=== PATIENT | female | born 1970 | race Caucasian/White ===

== ENCOUNTER → 2016-04-19 | Outpatient (CLI) | payer BC ==
--- NOTE | 2016-04-19 09:48 | DI ---
PA /LATERAL CHEST X-RAY, 04/19/2016 9:09 AM : Clinical History: Chest pain with respiration. Previous Exam: 12/08/2014. There is no acute soft tissue or bony abnormality. Heart size is normal. Lungs are clear. Mediastinal structures are normal. There are no pulmonary nodules. Reading: Normal chest x-ray.
== END ==
LOC: MOB RAD 09:10
DX: R07.1 Chest pain on breathing (principal); J40 Bronchitis, not specified as acute or chronic
CPT/HCPCS: 71020

== ENCOUNTER → 2016-07-11 | Outpatient (CLI) | payer SELFPAY ==
[2016-07-11 17:23] LABS: BASOPHILS # (AUTO) 0.04 10*3/UL; BASOPHILS % (AUTO) 0.8 % (0-1); EOSINOPHILS # (AUTO) 0.18 10*3/UL; EOSINOPHILS % (AUTO) 3.8 % (0-8); HEMATOCRIT 44.9 % (37.0-47.0); HEMOGLOBIN 14.7 g/dL (12.0-16.0); LYMPHOCYTES # (AUTO) 1.78 10*3/uL; MEAN CORPUSCULAR HEMOGLOBIN 32.5 PG (27-31); MEAN CORPUSCULAR HGB CONC 32.7 g/dL (33-37); MEAN CORPUSCULAR VOLUME 99.3 FL (81-99); MEAN PLATELET VOLUME 11.3 FL (7.4-12.2); MONOCYTES # (AUTO) 0.29 10*3/UL (0.3-0.8); NEUTROPHILS # (AUTO) 2.51 10*3/UL; NEUTROPHILS % (AUTO) 52.3 % (50-80); RED BLOOD COUNT 4.52 10^6/uL (4.20-5.40)
[2016-07-11 17:27] LABS: BLOOD UREA NITROGEN 14 mg/dL (7-22); CALCIUM 9.7 mg/dL (8.7-10.7); EST GLOMERULAR FILTRATION > 60 (>60 ml/min/1.73m(2)); SERUM ALBUMIN 4.5 g/dL (3.5-4.8)
[2016-07-11 17:32] LABS: PLATELET MORPHOLOGY COMMENT NORMAL MORPHOLOGY (NORM); RBC MORPHOLOGY COMMENT NORMAL MORPHOLOGY (NORM); WBC MORPHOLOGY COMMENT NORMAL MORPHOLOGY (NORM)
== END ==
LOC: MOB LAB 15:58
PROVIDERS: ATTEND Family Medicine
DX: K21.9 Gastro-esophageal reflux disease without esophagitis (principal); R10.84 Generalized abdominal pain; K62.5 Hemorrhage of anus and rectum; R53.83 Other fatigue
CPT/HCPCS: 36415; 80053; 84443; 85025

== ENCOUNTER → 2016-07-27 | Outpatient (CLI) | payer OTHER ==
--- NOTE | 2016-07-29 21:58 | DI ---
XR CXR 2VW PA/LAT,07/27/2016 2:54 PM: Clinical History: Cough Previous Exam: September 17, 2016 Findings: PA and lateral views of the chest are obtained, and demonstrate clear lungs. The cardiomediastinum an d bony thorax are unremarkable. Impression: Normal chest.
== END ==
LOC: MOB RAD 14:56
PROVIDERS: ATTEND Family Medicine
DX: R05 Cough (principal)
CPT/HCPCS: 71020

== ENCOUNTER 2016-10-15 19:04 | Emergency (ER) | payer OTHER ==
[2016-10-15] MEDS ORDERED: ONDANSETRON 4 MG/2 ML VIAL IVP ONE (19:15)
[2016-10-15] MEDS ORDERED: Sodium Chloride 0.9% 1,000 ML PRIMARY IV ONE (19:15)
[2016-10-15] MEDS ORDERED: ALBUTEROL SULFATE 2.5 MG/3 ML NEB ONE (19:25)
[2016-10-15] MEDS ORDERED: ALBUTEROL SULFATE 2.5 MG/3 ML NEB SCH (19:30)
--- NOTE | 2016-10-15 19:33 | PDOC ---
Gen Adult / Medical Screen HPI - General Chief Complaint: General Medical Stated Complaint: AMMONIA EXPOSURE, CHEST TIGHTNESS Date Seen by Provider: 10/15/16 Time Seen by Provider: 19:30 Source: POSITIVE: Patient Exam Limitations: POSITIVE: No limitations Nurse's Notes Reviewed & Considered: Yes - Indicators Temperature Between 95 and 101 Degrees: Yes Respirations Between 12 and 20: Yes Blood Pressure Between 100-165 (sys) and 60-100 (snyder): Yes Pulse Range Between 60-105 (100 for age > 60 years): Yes Severe Pain (Greater than 5/10 Reported): No Chest or Abdominal Pain: Yes (chest tightness and shortness of breath) Inability to Walk: No Pt Reports Active High Risk Cond. (TB/Hepatitis/HIV/Chemo): No Abnormal Mental Status: No - History of Present Illness Initial Comments: This is a very pleasant 46-year-old female who comes in today with a chief complaint of ammonia exposure. 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 She was in the house approximately an hour after which she developed chest tightness and shortness of breath and a sore throat. This occurred at approximately 1300 hrs. today. She comes in now seeking further evaluation because she has persistence of symptoms. She also complains of cough. Body Location Affected: REPORTS: Chest Timing: REPORTS: Abrupt Duration: 4-6 hours Similar Symptoms Previously: No Recent Care Received: REPORTS: Denies Any Prior Injuries Related to Current Complaint?: No - Patient Home Medications Home Medications: Home Medications Calcium Carbonate/Vitamin D3 [Calcium 600-Vit D3 200 Tablet] 1 each PO DAILY 08/02 Cholecalciferol [Vitamin D] 1 cap PO DAILY 07/27/10 Vit B12/Intrins Fact/FA Cmb #2 1 tab SL DAILY 07/27/[address] [PriLOSEC] 1 cap PO DAILY 10/05/10 Multivitamin [Daily Vitamin] 1 tab PO DAILY tab 04/21/13 Topiramate [Topamax Tab] 3 tab PO tab 12/08/13 Prochlorperazine Maleate 0.5 tab PO DAILY PRN 02/03/14 Tramadol HCl 1 tab PO BID 02/03/14 Valacyclovir HCl [Valtrex] 1 tab PO TID tab 04/15/14 Budesonide/Formoterol Fumarate [Symbicort] 2 puff INH BID inh 04/16/16 Albuterol Sulfate [Proair Hfa] 1 - 2 puff INH Q4-6H #1 puff 04/19/16 Budesonide/Formoterol Fumarate [Symbicort] 2 puff INH BID #1 inh 07/24/16 Methylprednisolone [Medrol] 4 mg PO 3-4XD #1 packet 07/27/16 Promethazine HCl/Codeine [Promethazine-Codeine Syrup] 5 ml PO Q4H #240 ml Estradiol [Estrace] 1 tab PO DAILY #30 tab 08/07/16 Estradiol [Estrace] 1 tab PO QHS #90 tab 09/12/16 - Patient Allergies Allergies/Adverse Reactions: Allergies Allergy/AdvReac Type Severity Reaction Status Date / Time cephalexin Allergy Intermediate rash Verified 10/15/16 19:43 Penicillins Allergy Intermediate HIVES Verified 10/15/16 19:43 influenza virus vaccine, AdvReac Severe NOT Verified 10/15/16 19:43 specific APPLICABLE Past Medical History - heen HEENT History: Hard of Hearing Additional HEENT History: BILAT HEARING LOSS RECURRING SINUS INFECTIONS Cardiovascular History: Denies History Respiratory History: Other (please comment) Additional Respiratory History: USED ALBUTEROL FOR BRONCHITIS AND TO HELP " CATCH MY BREATH" IN COLD WEATHER Gastrointestinal History: GERD Additional Gastrointestinal History: 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 PERIPHERAL NEUROPATHY Neurological History: Migraines Additional Neurological History: PERIPHERAL NEUROPATHY/FIBROMYALGIA Blood Disorders: Denies History Psychiatric History: Denies History History of Sexually Transmitted Diseases: No Cancer History: Denies History History of MDRO: No History of Other Communicable Diseases: Yes (HPV) Alcohol Use: None Substance Use Type: None Previous Surgical History: Yes Type / Date of Surgery: TUBAL/ HYST/ EGD X2 / COLONOSCOPY/ LAP ABE/ BLADDER HYDRODILATION A CHILD Anesthesia Reactions: No Malignant Hyperthermia: No Significant Family History: Heart disease, Diabetes, Hypertension, Other ( please comment) Additional Family History: CVA ROS - Limitations ROS Limitations: No Limitations Constitution: REPORTS: Denies Symptoms Cardiovascular: REPORTS: Chest Pain Respiratory: REPORTS: Cough Non Productive, Hurts To Breathe, Shortness Of Breath Neurological: REPORTS: Denies Neuro Symptoms Gastrointestinal: REPORTS: Denies GI Symptoms Endocrine: REPORTS: Denies Symptoms Musculoskeletal: REPORTS: Denies MS Symptoms Genitourinary: REPORTS: Denies Symptoms Eyes: REPORTS: Denies Symptoms ENT: REPORTS: Denies Symptoms Skin: REPORTS: Denies Skin Symptoms Lympathic: REPORTS: Denies Lympathic Symptoms Immunologic: POSITIVE: Denies Symptoms Psychiatric: POSITIVE: Denies Psych Symptoms Gen Adult/Medical Screen Exam - General Appearance General Appearance: POSITIVE: Alert, Cooperative, No Acute Distress, No Evidence of Trauma - HEENT HEENT: POSITIVE: Head Inspection Nml, Eyes Inspection Nml, Ears Inspection Nml, Nose Inspection Nml, Oral/Dental Inspect. Nml, Pharynx Inspect. Nml, PERRL, EOMI - Pupils Pupil Size: 4 mm: Bilateral - Neck Neck: POSITIVE: Normal Inspection, Thyroid Normal - Respiratory Respiratory: POSITIVE: No Respiratory Distress, Breath Sounds Normal, Chest Non- Tender - Cardiovascular Cardiovascular: POSITIVE: Regular Rate & Rhythm, No Murmur, No Gallop, PMI Normal - Abdomen Abdomen: Soft: (All Quadrants), Normal Bowel Sounds: (All Quadrants), Denies Tenderness: (All Quadrants), No Splenomegaly: (All Quadrants), No Hepatomegaly: (All Quadrants), No Guarding: (All Quadrants), No Rebound: (All Quadrants), No Palpable Pulse: (All Quadrants), No Palpabale Mass: (All Quadrants), No Distention: (All Quadrants), No Rigidity: (All Quadrants) - Back Back: POSITIVE: Normal Inspection - Neurological / Psychological Mental Status: POSITIVE: Mood Normal, Affect Normal Orientation: POSITIVE: Oriented x 3 - Skin Skin: POSITIVE: Normal Color, Warm, Dry, No Rash - Extremities Extremity: Non-Tender: (All Extremities), Normal ROM: (All Extremities), Normal Inspection: (All Extremities), Pelvis Stable: (All Extremities) Procedures - Laceration/Wound Repair Did patient have a laceration repair: No Gen Adlt/Medical Scrn Progress - Results Reviewed by me Xrays/CTs/US Reviewed by me: Yes Discussed with Radiologist: Yes Lab Results Reviewed: Yes Lab Results:: Laboratory Results 10/15/16 10/15/16 Range/Units 19:37 19:40 WBC 4.17 L (4.8-10.8) 10^3/uL RBC 4.20 (4.20-5.40) 10^6/uL Hgb 14.1 (12.0-16.0) g/dL Hct 42.2 (37.0-47.0) % MCV 100.5 H (81-99) FL MCH 33.6 H (27-31) PG MCHC 33.4 (33-37) g/dL RDW Std Deviation 48.4 (39-50) fL RDW Coeff of [place] 13.3 (11.5-14.5) % Plt Count 231 (140-350) 10*3/uL MPV 10.4 (7.4-12.2) FL Immature Gran % (Auto) 0.2 (0-5) % Neut % (Auto) 42.0 L (50-80) % Lymph % (Auto) 43.9 (10-50) % [place] % (Auto) 8.9 (5-15) % Eos % (Auto) 3.1 (0-8) % Baso % (Auto) 1.9 H (0-1) % Immature Gran # (Auto) 0.01 10*3/UL Neut # (Auto) 1.75 10*3/UL Lymph # (Auto) 1.83 10*3/uL [place] # (Auto) 0.37 (0.3-0.8) 10*3/UL Eos # (Auto) 0.13 10*3/UL Baso # (Auto) 0.08 10*3/UL WBC Morphology Comment Normal morphology (NORM) Plt Morphology Comment Normal morphology (NORM) RBC Morph Comment Normal morphology (NORM) ABG pH 7.36 (7.35-7.45) ABG pCO2 30 L (34-38) MMHG ABG pO2 77 H (65-75) MMHG ABG HCO3 17 L (22-26) ABG Total CO2 17 L (23-27) MMOL/L ABG O2 Saturation 95 (90-100) % ABG Base Excess -9 L (-2-2) MMOL/L Yuriy Test Y FiO2 Ra Sodium 141 (135-145) meq/L Potassium 3.9 (3.8-5.2) meq/L Chloride 110 (98-112) meq/L Carbon Dioxide 22 L (23-33) meq/L Anion Gap 9 (5-20) BUN 14 (7-22) mg/dL Creatinine 0.9 (0.50-1.20) mg/dL Estimated GFR > 60 (>60 ml/min/1.73m(2)) BUN/Creatinine Ratio 15.55 (6-20) Glucose 95 (78-110) mg/dL Calculated Osmolality 292.0 (267-292) mOsm/kg Lactic Acid 1.3 (0.70-2.10) MMOL/L Calcium 8.9 (8.7-10.7) mg/dL Total Bilirubin 0.2 L (0.3-1.2) mg/dL AST 13 (8-39) IU/L ALT 20 (9-52) IU/L Alkaline Phosphatase 69 (38-126) IU/L Total Protein 6.8 (6.1-8.0) g/dL Albumin 4.0 (3.5-4.8) g/dL Globulin 2.8 (2.50-4.10) g/dL Albumin/Globulin Ratio 1.40 (1.3-2.0) mg/g - Patient's Progress Pain Medication Addressed: POSITIVE: Not Applicable Re-Examine Time: 20:53 Status: POSITIVE: Improved MDM / ED Course: Patient was evaluated, an IV started, blood drawn and sent to the lab for studies, radiographic examinations were obtained, and patient received albuterol nebulizer treatment. Findings: Chest x-rays normal chest radiograph. CBC is normal. Comprehensive metabolic panel is normal. Assessment: Ammonia exposure. Discharge home: continue with home albuterol, Z-Jorge is prescribed, follow-up with primary care physician. Return to the emergency room if increasing shortness of breath, chest pain, or fevers. - Consult Counseled: POSITIVE: Patient, RE: Lab Results, RE: Radiology Results, RE: DX, RE : Need for F/U Patient Care Time - Estimated PCT Patient Care Time (In Minutes): 30 Vital Signs - Recent Vital Signs Vital Signs: Vital Signs (Last 8 hours) Temp Pulse Resp BP Pulse Ox 10/15/16 19:05 98.3 F 82 18 128/97 97 - VS Reviewed Vital Signs Reviewed: Yes Discharge Clinical Impression: Poisoning by aromatic ammonia spirit Discharge Disposition: Discharged to Home Condition: Stable Patient Instructions Given at Discharge: Dyspnea (ED)
[2016-10-15 19:42] LABS: HEMATOCRIT 42.2 % (37.0-47.0); HEMOGLOBIN 14.1 g/dL (12.0-16.0); MEAN CORPUSCULAR HEMOGLOBIN 33.6 PG (27-31); MEAN CORPUSCULAR HGB CONC 33.4 g/dL (33-37); MEAN CORPUSCULAR VOLUME 100.5 FL (81-99)
[2016-10-15 19:43] LABS: BASOPHILS # (AUTO) 0.08 10*3/UL; BASOPHILS % (AUTO) 1.9 % (0-1); EOSINOPHILS # (AUTO) 0.13 10*3/UL; EOSINOPHILS % (AUTO) 3.1 % (0-8); LYMPHOCYTES # (AUTO) 1.83 10*3/uL; MEAN PLATELET VOLUME 10.4 FL (7.4-12.2); MONOCYTES # (AUTO) 0.37 10*3/UL (0.3-0.8); MONOCYTES % (AUTO) 8.9 % (5-15); NEUTROPHILS # (AUTO) 1.75 10*3/UL; PLATELET MORPHOLOGY COMMENT NORMAL MORPHOLOGY (NORM); RBC MORPHOLOGY COMMENT NORMAL MORPHOLOGY (NORM); WBC MORPHOLOGY COMMENT NORMAL MORPHOLOGY (NORM)
[2016-10-15 19:56] VITALS: RESP 18; TEMP 98.3
[2016-10-15 19:56] LABS: ABG BASE EXCESS -9 MMOL/L (-2-2); ABG OXYGEN SATURATION 95 % (90-100); ABG PCO2 30 MMHG (34-38); ABG PH 7.36 (7.35-7.45); ABG PO2 77 MMHG (65-75); ALLEN TEST Y; COLLECTION SITE R Rad X1
[2016-10-15 20:07] LABS: BLOOD UREA NITROGEN 14 mg/dL (7-22); BUN/CREATININE RATIO 15.55 (6-20); CALCIUM 8.9 mg/dL (8.7-10.7); EST GLOMERULAR FILTRATION > 60 (>60 ml/min/1.73m(2))
--- NOTE | 2016-10-15 20:32 | DI ---
PA /LATERAL CHEST X-RAY, 10/15/2016 7:15 PM : Clinical History: Ammonia exposure. Previous Exam: None at this facility. There is no acute soft tissue or bony abnormality. Heart size is normal. Lungs are clear. Mediastinal structures are normal. There are no pulmonary nodules. IMPRESSION: Normal chest x-ray.
[2016-10-15] MEDS ORDERED: AZITHROMYCIN 250 MG TABLET PO ONE (20:40)
== END 2016-10-15 21:04 | disposition home or self-care (01) ==
LOC: ER 19:04
DX: T59.891A Toxic effect of other specified gases, fumes and vapors, accidental (unintentional), initial encounter (principal); R07.9 Chest pain, unspecified; J02.9 Acute pharyngitis, unspecified; R05 Cough; X58.XXXA Exposure to other specified factors, initial encounter; Y92.098 Other place in other non-institutional residence as the place of occurrence of the external cause; Y99.0 Civilian activity done for income or pay
CPT/HCPCS: 36600; 71020; 80053; 82803; 83605; 85025; 94640; 96361; 96374; 99283 ×2; J2405; J7030